=== PATIENT | male | born 1980 | race Caucasian/White ===

== ENCOUNTER → 2017-04-23 | Outpatient (CLI) | payer OTHER ==
[~2017-04-23] MED LIST: SUCCINYLCHOLINE CHLORIDE 200 MG/10 ML VIAL IV PUSH ONE
== END ==
LOC: HEDF 20:34
DX: R41.82 Altered mental status, unspecified (principal); R40.2431 Glasgow coma scale score 3-8, in the field [EMT or ambulance]; V27.0XXA Motorcycle driver injured in collision with fixed or stationary object in nontraffic accident, initial encounter
CPT/HCPCS: A0431; A0436; J0330